=== PATIENT | male | born 1990 | race Two or more races ===

== ENCOUNTER 2018-06-17 19:13 | Emergency (ER) | payer OTHER ==
[~2018-06-17] VITALS: Ht 167.6 cm; Wt 70.0 kg
[2018-06-17 19:17] VITALS: BP 153/102
[2018-06-17] MEDS ORDERED: KETOROLAC 30 MG/1 ML IM ONE (19:30)
[2018-06-17] MEDS ORDERED: HYDROcodone/APAP 5/325 TABLET PO ONE (19:30)
[2018-06-17] MEDS ORDERED: DIAZEPAM 5 MG/ML, 2ML IVPush ONE (19:30)
[2018-06-17] MEDS ORDERED: KETOROLAC 30 MG/1 ML ONE (19:45)
[2018-06-17] MEDS ORDERED: DIAZEPAM 5 MG TABLET ONE (19:45)
[2018-06-17] MEDS ORDERED: HYDROcodone/APAP 5/325 TABLET ONE (19:45)
[2018-06-17] MEDS ORDERED: DIAZEPAM 5 MG TABLET PO ONE (20:00)
== END 2018-06-17 20:59 | disposition home or self-care (01) ==
LOC: ED 20:53
DX: S29.012A Strain of muscle and tendon of back wall of thorax, initial encounter (principal); X50.1XXA Overexertion from prolonged static or awkward postures, initial encounter; Y93.89 Activity, other specified; Y99.8 Other external cause status; Y92.89 Other specified places as the place of occurrence of the external cause
CPT/HCPCS: 72072; 72110; 96372; 99284; J1885